=== PATIENT | male | born 1950 | race Caucasian/White ===

== ENCOUNTER 2018-11-12 16:12 | Emergency (ER) | payer SELFPAY ==
[~2018-11-12] VITALS: Ht 170.2 cm; Wt 102.1 kg
[2018-11-12 16:26] VITALS: Ht 170.2 cm; Wt 102.1 kg
[2018-11-12 19:05] LABS: microscopic required? NO
[2018-11-12 19:18] LABS: BASOPHIL % 0.4 % (0-2); PLATELET COUNT 310 x10^3mcL (130-400); RED CELL DISTRIBUTION WIDTH 13.6 % (11.5-14.5)
[2018-11-12 19:28] LABS: CARBON DIOXIDE 31.2 mmol/L (21-32); CHLORIDE SERUM 103 mmol/L (98-107); CREATININE SERUM 1.1 mg/dL (0.7-1.3); GFR1 > 60 mL/min; GLUCOSE SERUM 116 mg/dL (74-106); POTASSIUM SERUM 4.2 mmol/L (3.5-5.1); SODIUM SERUM 140 mmol/L (136-145)
[2018-11-12 19:31] LABS: urine erythrocyte NEGATIVE (NEGATIVE)
[2018-11-12 19:40] LABS: ALBUMIN 3.5 g/dL (3.4-5.0); ALKALINE PHOSPHATASE 73 U/L (46-116); ALT/SGPT 25 U/L (16-63); AMYLASE 75 U/L (25-115); AST/SGOT 11 U/L (15-37); BILIRUBIN TOTAL 0.8 mg/dL (0.20-1.00); CHOLESTEROL 164 mg/dL (<200); HDL CHOLESTEROL 52 mg/dL (40-60); LIPASE 146 IU/L (73-393); MAGNESIUM 2.1 mg/dL (1.8-2.4); T4(THYROXINE) 8.2 ug/dL (4.7-13.3); TOTAL PROTEIN, SERUM 6.7 g/dL (6.4-8.2)
[2018-11-12 20:28] LABS: AMPHETAMINE QUAL UR NONE DETECTED (See below)
[2018-11-12 22:48] VITALS: BP 148/89
== END 2018-11-12 22:45 | disposition home or self-care (01) ==
LOC: ED 16:12
PROVIDERS: Emergency Medicine
DX: I51.7 Cardiomegaly (principal); J98.01 Acute bronchospasm; I10 Essential (primary) hypertension; R42 Dizziness and giddiness; R51 Headache
CPT/HCPCS: 82962; 83880; J1885; J2930; J7030; J7613; J7644; Q0092